=== PATIENT | female | born 1965 | race Caucasian/White ===

== ENCOUNTER 2018-01-19 11:41 | Emergency (ER) | payer OTHER ==
[~2018-01-19] VITALS: Ht 170.2 cm; Wt 90.0 kg
[~2018-01-19 11:41] MED LIST: AMIT50TA3 PO; DOXY100C PO; HYDR12.57 PO; LOSA50TA PO; LYRI50CA PO; OMEP40CA2 PO; OXYB5TAB PO; VITA500012 PO; ZANT150T2 PO; ZOSTINJ SQ
[2018-01-19 11:49] VITALS: BP 145/85; PULSE 80; RESP 18; TEMP 97.9; O2SAT 93
--- NOTE | 2018-01-19 12:03 | PD ---
HPI Chief Complaint: Injury Time Seen by Provider: 11:53 Travel History International Travel<30 days: No Contact w/Intl Traveler<30days: No Traveled to known affect area: No History of Present Illness HPI 52-year-old female presents emergency department with ongoing and recently acute left lateral ankle pain and swelling. Patient is long history of chronic left ankle pain secondary to workers comp incident which occurred on 06/09/2014. Patient was seen by multiple practitioners including pain management and orthopedist, in fact undergoing a ligamental repair 20 months ago. Patient now states that she has been fighting Worker's Comp. regarding ongoing treatment. Her lower recommend she come in today since she had a recurrence of her left ankle pain this morning. Patient states she was simply walking when her left ankle "gave out" she now has 8 out of 10 pain in the left lateral ankle. She states the pain was so bad she almost fell completely down. She is here for evaluation. She is not requesting narcotic pain medicines. Patient states she has multiple braces and boots at home. She is allergic to lisinopril. [facility] Social History Alcohol Use: Yes Tobacco Use: No Substance Use: No Allergies-Medications (Allergen,Severity, Reaction): Coded Allergies: lisinopril (Verified Allergy, Severe, COUGH, 01/19/18) ADVERSE REACTION COUGH Reported Meds & Prescriptions Reported Meds & Active Scripts Active Zantac (Ranitidine HCl) 150 Mg Tab 150 Mg PO DAILY Alternate PPI with H2 keo every two weeks if tolerated. Losartan (Losartan Potassium) 50 Mg Tab 50 Mg PO DAILY Hydrochlorothiazide 12.5 Mg Cap 25 Mg PO DAILY Oxybutynin ER 24 HR (Oxybutynin Chloride) 5 Mg Tab 5 Mg PO DAILY Reported Levothyroxine (Levothyroxine Sodium) 50 Mcg Tab 50 Mcg PO DAILY Ibuprofen 800 Mg Tab 800 Mg PO BID PRN Review of Systems Except as stated in HPI: all other systems reviewed are Neg General / Constitutional: No: Fever Eyes: No: Visual changes HENT: No: Headaches Cardiovascular: No: Chest Pain or Discomfort Respiratory: No: Shortness of Breath Gastrointestinal: No: Abdominal Pain Genitourinary: No: Dysuria Musculoskeletal: Positive: Arthralgias, Limited ROM, Pain Skin: No Rash Neurologic: No: Weakness Psychiatric: No: Depression Endocrine: No: Polydipsia Hematologic/Lymphatic: No: Easy Bruising Physical Exam Narrative GENERAL: Patient appears in mild to moderate distress. SKIN: Warm and dry. Normal color. Normal turgor. No current signs of trauma. HEAD: Atraumatic. Normocephalic. EYES: Pupils equal and round. No scleral icterus. No injection or drainage. ENT: No nasal bleeding or discharge. Mucous membranes pink and moist. Pharynx is clear. Airway is patent NECK: Trachea midline. Supple and nontender. CARDIOVASCULAR: Regular rate and rhythm. No murmurs gallops or rubs. RESPIRATORY: No accessory muscle use. Clear to auscultation. Breath sounds equal bilaterally. MUSCULOSKELETAL: Extremities without clubbing, cyanosis, or edema. No obvious deformities. Patient has pain with palpation along the left lateral malleolus, with localized swelling noted. No ecchymosis. Range of motion is limited secondary to pain. NEUROLOGICAL: Awake and alert. No obvious cranial nerve deficits. Motor grossly within normal limits. Five out of 5 muscle strength in the arms and legs. Normal speech. PSYCHIATRIC: Appropriate mood and affect; insight and judgment normal. Data Data Last Documented VS Vital Signs Date Time Temp Pulse Resp B/P (MAP) Pulse Ox O2 Delivery O2 Flow Rate FiO2 01/19/18 11:49 97.9 80 18 145/85 (105) 93 Orders Orders Ankle, Complete ([id number]) (01/19/18 11:54) Ketorolac Inj (Toradol Inj) (01/19/18 12:15) [facility] Medical Decision Making Medical Screen Exam Complete: Yes Emergency Medical Condition: Yes Differential Diagnosis Left ankle pain. Left ankle sprain. Workers comp injury. Narrative Course Patient is medically stable at time of exam. X-ray of the left ankle is ordered. Patient is given Toradol 60 mg IM X-rays show significant arthritic changes, but no acute fractures or dislocations. Patient started on meloxicam 7.5 mg twice daily. Patient should wear her boot at home for support. Recommend follow-up with Dr. Felipe, the steel erector apprentice on-call for further evaluation and treatment Workers comp form is completed Patient can return if symptoms worsen as needed. Diagnosis Primary Impression: Ankle pain, left Qualified Codes: M25.572 - Pain in left ankle and joints of left foot; G89.29 - Other chronic pain Referrals: Milliron,Hilaree DPM Patient Instructions: Ankle Exercises (GEN), General Instructions Additional Instructions: Patient is given Toradol 60 mg IM X-rays show significant arthritic changes, but no acute fractures or dislocations. Patient started on meloxicam 7.5 mg twice daily. Patient should wear her boot at home for support. Recommend follow-up with Dr. Felipe, the steel erector apprentice on-call for further evaluation and treatment Workers comp form is completed Patient can return if symptoms worsen as needed. Med/Other Pt SpecificInfo: Prescription(s) given Disposition: 01 DISCHARGE HOME Condition: Stable Gatito Croft Jan 19, 2018 12:03
[2018-01-19] MEDS ORDERED: KETOROLAC TROMETHAMINE 60 MG/2 ML (IM) VIAL IM ONE (12:15)
[2018-01-19] MEDS ORDERED: IBUP1TAB7 PO (12:22)
[2018-01-19] MEDS ORDERED: LEVO50TA4 PO (12:24)
[2018-01-19] MEDS ORDERED: MELO7.5T27 PO (12:28)
--- NOTE | 2018-01-19 12:50 | RADRPT ---
EXAM DATE: 01/19/2018 12:16 PM EDT AGE/SEX: 52 years / Female INDICATIONS: Left ankle pain post fall. CLINICAL DATA: This is the patient's initial encounter. Patient reports that signs and symptoms have been present for 1 day and indicates a pain score of 8/10. MEDICAL/SURGICAL HISTORY: None. . Previous ligament surgery to left ankle. COMPARISON: No prior exams available for comparison. FINDINGS: An acute fracture is not seen. The ankle appears aligned. There is mild soft tissue swelling at the a nkle. There appears to be a possible old healed fracture deformity at the distal tibial shaft. CONCLUSION: No acute bony abnormality is seen. There is mild soft tissue swelling. Electronically signed by: Adan Russell MD 01/19/2018 12:49 PM EDT
== END 2018-01-19 12:49 | disposition home or self-care (01) ==
LOC: NEPK 11:41
DX: M25.572 Pain in left ankle and joints of left foot (principal); G89.29 Other chronic pain; Z88.8 Allergy status to other drugs, medicaments and biological substances
CPT/HCPCS: 73610; 96372; 99283; J1885

== ENCOUNTER 2018-01-29 07:30 | Emergency (ER) | payer MEDICAID, OTHER ==
[~2018-01-29] VITALS: Ht 170.2 cm; Wt 100.0 kg
[~2018-01-29 07:30] MED LIST changes: -AMIT50TA3 PO; -DOXY100C PO; +IBUP1TAB7 PO; +LEVO50TA4 PO; -LYRI50CA PO; +MELO7.5T27 PO; -OMEP40CA2 PO; -VITA500012 PO; -ZOSTINJ SQ
[2018-01-29 07:35] VITALS: BP 130/75; PULSE 67; RESP 16; TEMP 97.7; O2SAT 98
--- NOTE | 2018-01-29 07:51 | PD ---
HPI Chief Complaint: Injury Time Seen by Provider: 07:40 Travel History International Travel<30 days: No Contact w/Intl Traveler<30days: No Traveled to known affect area: No History of Present Illness HPI Patient is a well-appearing 52-year-old female presenting to the emergency department for evaluation of left ankle pain. Patient states she has chronic ankle pain secondary to an injury she sustained at work in 2013. She has been fighting with Worker's Comp. to have it surgically repaired. Patient reports that she got out of bed this morning and rolled her ankle. Patient reports the pain is a 7 out of 10, aching and throbbing, constant. Patient reports that she takes ibuprofen for her pain. She also stated that her primary doctor told her to keep presenting to the emergency department in hopes that it would prompt Worker's Comp. to find a provider to repair the ankle. Patient states that she has several ligaments that are torn. Symptoms are chronic with an acute exacerbation. She reports mild swelling to the lateral aspect of the left ankle. [facility] Past Medical History Hypertension: Yes Social History Alcohol Use: Yes Tobacco Use: No Substance Use: No Allergies-Medications (Allergen,Severity, Reaction): Coded Allergies: lisinopril (Verified Allergy, Severe, COUGH, 01/19/18) ADVERSE REACTION COUGH Reported Meds & Prescriptions Reported Meds & Active Scripts Active Meloxicam 7.5 Mg Tab 7.5 Mg PO BIDPC Zantac (Ranitidine HCl) 150 Mg Tab 150 Mg PO DAILY Alternate PPI with H2 keo every two weeks if tolerated. Losartan (Losartan Potassium) 50 Mg Tab 50 Mg PO DAILY Hydrochlorothiazide 12.5 Mg Cap 25 Mg PO DAILY Oxybutynin ER 24 HR (Oxybutynin Chloride) 5 Mg Tab 5 Mg PO DAILY Reported Levothyroxine (Levothyroxine Sodium) 50 Mcg Tab 50 Mcg PO DAILY Ibuprofen 800 Mg Tab 800 Mg PO BID PRN Review of Systems Except as stated in HPI: all other systems reviewed are Neg Musculoskeletal: Positive: Myalgias, Arthralgias, Limited ROM, Edema Physical Exam Narrative GENERAL: Well-developed, well-nourished, alert female. Presenting in no acute distress. SKIN: Warm and dry. HEAD: Normocephalic. EYES: No scleral icterus. No injection or drainage. NECK: Supple, trachea midline. No JVD or lymphadenopathy. CARDIOVASCULAR: Regular rate and rhythm without murmurs, gallops, or rubs. RESPIRATORY: Breath sounds equal bilaterally. No accessory muscle use. GASTROINTESTINAL: Abdomen soft, non-tender, nondistended. MUSCULOSKELETAL: No cyanosis. Mild edema to the lateral aspect of the left ankle. No erythema noted limited range of motion with flexion extension. 2+ dorsalis pedal pulse, brisk less than 3 second capillary refill. BACK: Nontender without obvious deformity. No CVA tenderness. Data Data Last Documented VS Vital Signs Date Time Temp Pulse Resp B/P (MAP) Pulse Ox O2 Delivery O2 Flow Rate FiO2 01/29/18 07:35 97.7 67 16 130/75 (93) 98 Orders Orders Ankle, Complete ([id number]) (01/29/18 ) [facility] Medical Decision Making Medical Screen Exam Complete: Yes Emergency Medical Condition: Yes Interpretation(s) Vital Signs Date Time Temp Pulse Resp B/P (MAP) Pulse Ox O2 Delivery O2 Flow Rate FiO2 01/29/18 07:35 97.7 67 16 130/75 (93) 98 Differential Diagnosis Sprain versus strain versus fracture versus other Narrative Course Patient is a 52-year-old female presenting to the emergency department for evaluation of acute on chronic ankle pain. Patient's vital signs are stable. Patient is requesting a ankle x-ray "to be on the safe side". Discussed that this would only show bony injury. Patient has reported ligament tears that need to be surgically repaired. Advised her that x-rays only show bony damage. Patient verbalized understanding but wanted to go ahead with the x-ray for Worker's Comp. purposes. X-rays negative for acute abnormality, does show degenerative changes. Patient is to continue using the boot, she can take ibuprofen as needed and as directed for pain. She is to follow-up with workman' s comp, activity restrictions per podiatry/Worker's Comp. physician. Diagnosis Primary Impression: Ankle pain, left Qualified Codes: M25.572 - Pain in left ankle and joints of left foot Referrals: Primary Care Physician Patient Instructions: General Instructions, Swollen Ankle Joint (ED) Additional Instructions: Follow-up with your primary doctor or workman's comp physician as scheduled Continue to use boot as previously advised You can take acetaminophen or ibuprofen as needed and as directed for pain Return to emergency department for any new symptoms. Med/Other Pt SpecificInfo: No Change to Meds Disposition: 01 DISCHARGE HOME Condition: Stable Halima Bear Jan 29, 2018 07:51
--- NOTE | 2018-01-29 09:20 | RADRPT ---
EXAM DATE: 01/29/2018 8:19 AM EDT AGE/SEX: 52 years / Female INDICATIONS: Left lateral malleolus pain after rolling ankle this morning. CLINICAL DATA: This is the patient's initial encounter. Patient reports that signs and symptoms have been present for 1 day and indicates a pain score of 7/10. MEDICAL/SURGICAL HISTORY: None. . Previous ligament surgery to left ankle. COMPARISON: [facility] [place], ANKLE LEFT COMPLETE ([id number]), 01/19/2018. . FINDINGS: Degenerative changes evident. Minimal soft tissue swelling. Alignment anatomic. Fracture not apprecia shima. CONCLUSION: Anatomic alignment. Degenerative changes, no fracture Electronically signed by: Salomón Madrigal MD 01/29/2018 9:19 AM EDT
== END 2018-01-29 09:47 | disposition home or self-care (01) ==
LOC: NEPD 07:30
DX: M25.572 Pain in left ankle and joints of left foot (principal); G89.29 Other chronic pain; I10 Essential (primary) hypertension; X50.1XXA Overexertion from prolonged static or awkward postures, initial encounter; Y92.003 Bedroom of unspecified non-institutional (private) residence as the place of occurrence of the external cause
CPT/HCPCS: 73610; 99283